=== PATIENT | female | born 1995 | race African-American/Black ===

== ENCOUNTER 2020-08-17 01:26 | Inpatient (IN) | payer MEDICAID ==
[~2020-08-17] VITALS: Ht 154.9 cm; Wt 70.3 kg
[2020-08-17] MEDS ORDERED: ONDANSETRON HCL 4MG/2ML INJ IV ONE (02:30)
[2020-08-17] MEDS: LACTATED RINGERS 1,000 ML IV SCH ×2 (02:56→10:41)
[2020-08-17 03:31] LABS: BASOPHILS % 0.2 % (0.0-2.0); CHLORIDE 106 mEq/L (98-107); HEMATOCRIT. 32.5 % (36.0-48.0); LYMPHOCYTES % 9.1 % (20.0-50.0); MEAN CORPUSCULAR HEMOGLOBIN 33.3 pg (28.0-32.0); MEAN CORPUSCULAR VOLUME 98.6 fL (81.0-99.0); MEAN PLATELET VOLUME 9.3 fl (7.4-10.4); MONOCYTES % 6.9 % (2.0-8.0); NEUTROPHILS % 83.8 % (40.0-76.0); PLATELET 199 x1000/uL (130-400); RED BLOOD CELL COUNT 3.29 mill/uL (4.2-5.4); RED CELL DISTRIBUTION WIDTH 13.6 % (11.6-14.6)
[2020-08-17 03:38] LABS: PARTIAL THROMBOPLASTIN TIME 31.8 sec (23.4-31.0); PROTHROMBIN TIME 10.3 sec (9.6-11.0)
[2020-08-17 03:42] LABS: CLARITY URINE TURBID (CLEAR); COLOR URINE ORANGE (YELLOW); KETONES URINE TRACE (NEGATIVE); LEUKOCYTE ESTERASE URINE 2+ (NEGATIVE); NITRITE URINE NEGATIVE (NEGATIVE); OCCULT BLOOD URINE 1+ (NEGATIVE); PH URINE 7.5 (4.5-8.0); PROTEIN URINE 2+ (NEGATIVE); SPECIFIC GRAVITY URINE 1.035 (1.005-1.030)
[2020-08-17] MEDS ORDERED: LIDOCAINE HCL 1% 20ML VIAL (Pyxis) INJ INFIL SCH (03:45)
[2020-08-17] MEDS ORDERED: NALOXONE HCL 0.4 MG/ML 1ML VIAL IM PRN (03:45)
[2020-08-17] MEDS ORDERED: BUTORPHANOL TARTRATE 2 MG/ML VIAL IV PRN (03:45)
[2020-08-17] MEDS ORDERED: METHYLERGONOVINE MALEATE 0.2 MG/ML IM PRN (03:45)
[2020-08-17] MEDS ORDERED: DEXT 5%/LR + PITOCIN 20UNITS/L 1,000 ML IV SCH ×2 (03:45→16:30)
[2020-08-17 03:50] LABS: *AMPHETAMINES SCREEN URINE NEGATIVE (NEGATIVE); *BARBITURATES SCREEN URINE NEGATIVE (NEGATIVE); *BENZODIAZEPINES SCREEN URINE NEGATIVE (NEGATIVE); *COCAINE SCREEN URINE NEGATIVE (NEGATIVE); METHADONE URINE SCREEN NEGATIVE (NEGATIVE); OPIATES URINE SCREEN NEGATIVE (NEGATIVE); PHENCYCLIDINE URINE SCREEN NEGATIVE (NEGATIVE)
[2020-08-17] MEDS ORDERED: ROPIVACAINE HCL/PF EPIDURAL 200 ML EPI SCH (04:00)
[2020-08-17 04:02] LABS: CANNABINOID URINE SCREEN PRESUMTIVE POSITIVE (NEGATIVE)
[2020-08-17 04:03] LABS: HEPATITIS B SURFACE ANTIGEN NEGATIVE
[2020-08-17] MEDS ORDERED: PENICILLIN G POTASSIUM 5 MMU in DEXT 5% WATER 100 ML IV SCH (04:15)
[2020-08-17] MEDS ORDERED: INFLUENZA VACCINE 05/PF 0.5 ML VIAL IM ONE (06:15)
[2020-08-17] MEDS ORDERED: PNEUMOCOCCAL 23-VAL P-SAC VAC 0.5 ML IM ONE (06:15)
[2020-08-17] MEDS ORDERED: LIDOCAINE HCL 2%/EPINEPHRINE 1:100,000 20 ML VIAL INFIL ONE (10:00)
[2020-08-17] MEDS ORDERED: PENICILLIN G POTASSIUM 2.5 MMU in DEXTROSE 5% WATER 50 ML IV SCH (10:00)
[2020-08-17] MEDS ORDERED: ACETAMINOPHEN 500MG TABLET PO NR (10:45)
[2020-08-17] MEDS ORDERED: GLYCERIN/WITCH HAZEL LEAF MEDICATED PAD TOP PRN (16:30)
[2020-08-17] MEDS ORDERED: BENZOCAINE/LANOLIN/ALOE VERA SPRAY TOP PRN (16:30)
[2020-08-17] MEDS ORDERED: HEMORRHOIDAL SUPP PR PRN (16:30)
[2020-08-17] MEDS ORDERED: IBUPROFEN 800MG TABLET PO PRN (16:30)
[2020-08-17] MEDS ORDERED: RHO(D) IMMUNE GLOBULIN 300 MCG/SYR IM PRN (16:30)
[2020-08-17] MEDS ORDERED: ACETAMINOPHEN WITH CODEINE 300/30MG TABLET PO PRN (16:30)
[2020-08-17] MEDS ORDERED: IBUPROFEN 400MG TABLET PO PRN (16:30)
[2020-08-17] MEDS ORDERED: DIPHENHYDRAMINE 25MG CAPSULE PO PRN (16:30)
[2020-08-17] MEDS ORDERED: LANOLIN OINT 7GM TUBE TOP PRN (16:30)
[2020-08-17] MEDS ORDERED: BISACODYL 10MG SUPP PR PRN (16:30)
[2020-08-17 18:30] VITALS: BP 126/76
[2020-08-17 20:00] VITALS: BP 123/69
[2020-08-17] MEDS ORDERED: DOCUSATE SODIUM 100MG CAPSULE PO SCH (21:00)
[2020-08-18 04:30] VITALS: BP 102/54
[2020-08-18] MEDS ORDERED: IBUP-2030 PO (06:53)
[2020-08-18] MEDS ORDERED: FERR325T23 PO (06:53)
[2020-08-18 07:53] VITALS: BP 119/69
[2020-08-18] MEDS: FERROUS SULFATE 325MG TABLET PO SCH ×2 (08:47→12:30)
[2020-08-18 08:57] LABS: BASOPHILS % 0.1 % (0.0-2.0); EOSINOPHILS % 0.1 % (0.0-5.0); HEMATOCRIT. 32.5 % (36.0-48.0); HEMOGLOBIN. 10.8 g/dL (12.0-16.0); LYMPHOCYTES % 7.4 % (20.0-50.0); MEAN CORPUSCULAR HEMOGLOBIN 33.2 pg (28.0-32.0); MEAN CORPUSCULAR VOLUME 99.5 fL (81.0-99.0); MEAN PLATELET VOLUME 9.6 fl (7.4-10.4); MONOCYTES % 6.9 % (2.0-8.0); NEUTROPHILS % 85.5 % (40.0-76.0); PLATELET 183 x1000/uL (130-400); RED BLOOD CELL COUNT 3.27 mill/uL (4.2-5.4); RED CELL DISTRIBUTION WIDTH 13.6 % (11.6-14.6)
[2020-08-18] MEDS ORDERED: PRENATAL VIT/FE FUMARATE/FA TABLET PO SCH (09:00)
== END 2020-08-18 19:00 | disposition home or self-care (01) | DRG 560 ==
LOC: 8 EST LDRP 01:26 → OBSVTOIN 01:26 → 8EST 18:59
PROVIDERS: ADMIT Obstetrics & Gynecology; ATTEND Obstetrics & Gynecology
PROC: 10E0XZZ Delivery of Products of Conception, External Approach (ICD-10-PCS; principal; 2020-08-17)
PROC: 0KQM0ZZ Repair Perineum Muscle, Open Approach (ICD-10-PCS; 2020-08-17)
PROC: 3E0R3BZ Introduction of Anesthetic Agent into Spinal Canal, Percutaneous Approach (ICD-10-PCS; 2020-08-17)
PROC: 00HU33Z Insertion of Infusion Device into Spinal Canal, Percutaneous Approach (ICD-10-PCS; 2020-08-17)
DX: O60.14X0 Preterm labor third trimester with preterm delivery third trimester, not applicable or unspecified (principal); O99.324 Drug use complicating childbirth; O99.52 Diseases of the respiratory system complicating childbirth; O77.0 Labor and delivery complicated by meconium in amniotic fluid; O99.02 Anemia complicating childbirth; O70.1 Second degree perineal laceration during delivery; F12.90 Cannabis use, unspecified, uncomplicated; F15.90 Other stimulant use, unspecified, uncomplicated; J45.909 Unspecified asthma, uncomplicated; D64.9 Anemia, unspecified; Z3A.35 35 weeks gestation of pregnancy; Z37.0 Single live birth
CPT/HCPCS: 36415; 76805; 76818; 80053; 80305; 80349; 81003; 82731; 85025; 86592; 86703; 86762; 86850; 86900; 87340; 99281; J2405; J2540; J2590; J2795; J3490; J7060; J7120; A4315

== ENCOUNTER 2020-12-13 11:37 | Inpatient (IN) | payer OTHER, MEDICAID ==
[~2020-12-13] VITALS: Ht 154.9 cm; Wt 59.4 kg
[~2020-12-13 11:37] MED LIST: FERR325T23 PO; IBUP-2030 PO
[2020-12-13] MEDS ORDERED: ONDANSETRON HCL 4MG/2ML INJ IV STA (12:39)
[2020-12-13] MEDS ORDERED: MAGNESIUM/ALUMINUM HYDROXIDE/SIMETHICONE 30ML UDC PO STA (12:39)
[2020-12-13] MEDS ORDERED: SODIUM CHLORIDE 0.9% 1,000 ML IV ONE ×2 (12:45→17:15)
[2020-12-13 13:05] LABS: BASOPHILS % 0.5 % (0.0-2.0); HEMATOCRIT. 45.6 % (36.0-48.0); HEMOGLOBIN. 14.9 g/dL (12.0-16.0); LYMPHOCYTES % 28.2 % (20.0-50.0); MEAN CORPUSCULAR HEMOGLOBIN 33.3 pg (28.0-32.0); MEAN CORPUSCULAR VOLUME 102.2 fL (81.0-99.0); MEAN PLATELET VOLUME 9.2 fl (7.4-10.4); NEUTROPHILS % 61.3 % (40.0-76.0); PLATELET 217 x1000/uL (130-400); RED BLOOD CELL COUNT 4.46 mill/uL (4.2-5.4); RED CELL DISTRIBUTION WIDTH 15.1 % (11.6-14.6)
[2020-12-13 13:13] LABS: CHLORIDE 104 mEq/L (98-107)
[2020-12-13 13:19] LABS: HCG SCREEN NEGATIVE
[2020-12-13 13:29] LABS: CLARITY URINE CLOUDY (CLEAR); COLOR URINE DARK YELLOW (YELLOW); KETONES URINE NEGATIVE (NEGATIVE); LEUKOCYTE ESTERASE URINE TRACE (NEGATIVE); NITRITE URINE NEGATIVE (NEGATIVE); OCCULT BLOOD URINE 2+ (NEGATIVE); PROTEIN URINE 1+ (NEGATIVE); SPECIFIC GRAVITY URINE 1.027 (1.005-1.030)
[2020-12-13] MEDS ORDERED: PIPERACILLIN/TAZ 3.375G PREMIX 50 ML IV ONE (19:00)
[2020-12-13 20:19] LABS: *BARBITURATES SCREEN URINE NEGATIVE (NEGATIVE); *BENZODIAZEPINES SCREEN URINE NEGATIVE (NEGATIVE); *COCAINE SCREEN URINE NEGATIVE (NEGATIVE); METHADONE URINE SCREEN NEGATIVE (NEGATIVE); OPIATES URINE SCREEN NEGATIVE (NEGATIVE); PHENCYCLIDINE URINE SCREEN NEGATIVE (NEGATIVE)
[2020-12-13 20:25] LABS: *AMPHETAMINES SCREEN URINE PRESUMTIVE POSITIVE (NEGATIVE); CANNABINOID URINE SCREEN PRESUMTIVE POSITIVE (NEGATIVE)
[2020-12-13] MEDS ORDERED: IOHEXOL 350 MG/ML 200ML INFUS..BTL IV ONE (23:52)
[2020-12-14] VITALS (9 sets, daily range): BP systolic 103–128; BP diastolic 52–93
[2020-12-14] MEDS ORDERED: MORPHINE SULFATE 2 MG/ML CPJ (NOT FOR IM USE) IV PRN (01:30)
[2020-12-14] MEDS: ONDANSETRON HCL 4MG/2ML INJ IV PRN ×2 (03:16→20:25)
[2020-12-14] MEDS: DEXT 5%/0.45% NACL KCL 20MEQ/L 1,000 ML IV SCH ×2 (03:31→16:09)
[2020-12-14] MEDS: PIPERACILLIN/TAZOBACTAM 3.375 G in DEXT 5% WATER 100 ML IV SCH ×2 (05:18→15:00)
[2020-12-14] MEDS ORDERED: PIPERACILLIN/TAZOBACTAM 3.375 G/VIAL IV SCH (06:00)
[2020-12-14 07:08] LABS: BASOPHILS % 0.2 % (0.0-2.0); CHLORIDE 107 mEq/L (98-107); HEMATOCRIT. 41.4 % (36.0-48.0); HEMOGLOBIN. 13.5 g/dL (12.0-16.0); LYMPHOCYTES % 25.2 % (20.0-50.0); MEAN CORPUSCULAR HEMOGLOBIN 33.5 pg (28.0-32.0); MEAN CORPUSCULAR VOLUME 102.5 fL (81.0-99.0); MEAN PLATELET VOLUME 9.8 fl (7.4-10.4); MONOCYTES % 10.1 % (2.0-8.0); NEUTROPHILS % 64.5 % (40.0-76.0); PLATELET 170 x1000/uL (130-400); RED BLOOD CELL COUNT 4.04 mill/uL (4.2-5.4); RED CELL DISTRIBUTION WIDTH 15.5 % (11.6-14.6)
[2020-12-14] MEDS ORDERED: HYDROCODONE/ACETAMINOPHEN 5/325MG TABLET PO PRN (11:15)
[2020-12-14] MEDS ORDERED: IPRATROPIUM/ALBUTEROL 0.5-3(2.5)MG/3ML NEB HHN PRN (13:45)
[2020-12-14 14:41] LABS: HEPATITIS B SURFACE ANTIGEN NEGATIVE
[2020-12-14 15:11] LABS: HEPATITIS A AB IGM NEGATIVE (NEGATIVE)
[2020-12-14] MEDS: METOPROLOL TARTRATE 50MG TABLET PO SCH (20:59)
[2020-12-15] VITALS (9 sets, daily range): BP systolic 86–160; BP diastolic 25–91
[2020-12-15] MEDS: PIPERACILLIN/TAZOBACTAM 3.375 G in DEXT 5% WATER 100 ML IV SCH ×5 (00:21→23:26)
[2020-12-15] MEDS: DEXT 5%/0.45% NACL KCL 20MEQ/L 1,000 ML IV SCH (05:14)
[2020-12-15] MEDS: METOPROLOL TARTRATE 50MG TABLET PO SCH (08:30)
[2020-12-15 09:54] LABS: CHLORIDE 107 mEq/L (98-107)
[2020-12-15] MEDS: LISINOPRIL 2.5MG TABLET PO SCH (11:30)
[2020-12-15] MEDS ORDERED: SODIUM POLYSTYRENE SULFONATE 15 G/60 ML BOT PO NR (12:00)
[2020-12-15] MEDS: FUROSEMIDE 40MG/4ML VIAL IVP SCH (12:17)
[2020-12-15] MEDS: MIDODRINE HCL 2.5MG TABLET PO SCH ×3 (12:18→17:34)
[2020-12-15 17:04] LABS: BASOPHILS % 0.2 % (0.0-2.0); HEMATOCRIT. 47.2 % (36.0-48.0); HEMOGLOBIN. 15.7 g/dL (12.0-16.0); LYMPHOCYTES % 24.7 % (20.0-50.0); MEAN CORPUSCULAR VOLUME 102.6 fL (81.0-99.0); MEAN PLATELET VOLUME 9.9 fl (7.4-10.4); MONOCYTES % 9.1 % (2.0-8.0); PLATELET 143 x1000/uL (130-400); RED CELL DISTRIBUTION WIDTH 15.4 % (11.6-14.6)
[2020-12-15] MEDS ORDERED: CARVEDILOL 12.5MG TABLET PO SCH (21:00)
[2020-12-16] VITALS: BP 99/60
[2020-12-16 02:00] VITALS: BP 105/78
[2020-12-16 04:00] VITALS: BP 118/43
[2020-12-16] MEDS: PIPERACILLIN/TAZOBACTAM 3.375 G in DEXT 5% WATER 100 ML IV SCH ×2 (05:49→11:01)
[2020-12-16 06:00] VITALS: BP 105/76
[2020-12-16 07:30] VITALS: BP 108/76
[2020-12-16] MEDS: FUROSEMIDE 40MG/4ML VIAL IVP SCH (08:23)
[2020-12-16] MEDS: LISINOPRIL 2.5MG TABLET PO SCH (08:24)
[2020-12-16] MEDS: MIDODRINE HCL 2.5MG TABLET PO SCH ×2 (08:24→13:00)
[2020-12-16 10:28] LABS: BASOPHILS % 0.2 % (0.0-2.0); EOSINOPHILS % 0.1 % (0.0-5.0); HEMATOCRIT. 42.8 % (36.0-48.0); HEMOGLOBIN. 14.3 g/dL (12.0-16.0); LYMPHOCYTES % 18.7 % (20.0-50.0); MEAN CORPUSCULAR HEMOGLOBIN 33.9 pg (28.0-32.0); MEAN CORPUSCULAR VOLUME 101.9 fL (81.0-99.0); MEAN PLATELET VOLUME 9.7 fl (7.4-10.4); MONOCYTES % 8.4 % (2.0-8.0); NEUTROPHILS % 72.6 % (40.0-76.0); PLATELET 145 x1000/uL (130-400); RED CELL DISTRIBUTION WIDTH 15.5 % (11.6-14.6)
[2020-12-16 10:54] LABS: CHLORIDE 102 mEq/L (98-107)
[2020-12-16 12:00] VITALS: BP 121/91
[2020-12-16] MEDS ORDERED: FURO-151 MT (12:03)
[2020-12-16] MEDS ORDERED: POTA20TA82 MT (12:03)
[2020-12-16] MEDS ORDERED: LISI2.5T47 PO (12:03)
[2020-12-16] MEDS ORDERED: CARV6.2548 MT (12:03)
[2020-12-16] MEDS ORDERED: ATORVASTATIN CALCIUM 10MG TABLET PO SCH (21:00)
[2020-12-22 04:11] LABS: AMPHETAMINE CONF URINE Positive (.); CANNABINOID CONFIRMATION URINE Positive (.)
== END 2020-12-16 15:00 | disposition left against medical advice (07) | DRG 720 ==
LOC: ER 11:37 → 5EST 21:28 → ENRESERV 21:43
PROVIDERS: ADMIT Internal Medicine; ATTEND Internal Medicine
DX: A41.9 Sepsis, unspecified organism (principal); E44.1 Mild protein-calorie malnutrition; E87.1 Hypo-osmolality and hyponatremia; I42.0 Dilated cardiomyopathy; I50.23 Acute on chronic systolic (congestive) heart failure; J40 Bronchitis, not specified as acute or chronic; K81.0 Acute cholecystitis; R74.01 Elevation of levels of liver transaminase levels; F17.210 Nicotine dependence, cigarettes, uncomplicated; E87.2 Acidosis; F15.10 Other stimulant abuse, uncomplicated; F12.10 Cannabis abuse, uncomplicated; I34.0 Nonrheumatic mitral (valve) insufficiency; I36.1 Nonrheumatic tricuspid (valve) insufficiency; I11.0 Hypertensive heart disease with heart failure; E78.5 Hyperlipidemia, unspecified; I24.8 Other forms of acute ischemic heart disease; Z68.24 Body mass index [BMI] 24.0-24.9, adult; Z71.51 Drug abuse counseling and surveillance of drug abuser; Z91.19 Patient's noncompliance with other medical treatment and regimen; Z82.49 Family history of ischemic heart disease and other diseases of the circulatory system
CPT/HCPCS: 36415; 71045; 71275; 76705; 78227; 80048; 80053; 80061; 80305; 80349; 81003; 83605; 83735; 83880; 84443; 84484; 84703; 85025; 85379; 86705; 86709; 86803; 87340; 93005; 93306; 93970; 94640; 99285; A9537; J1940; J2270; J2405; J2543; J7030; J7060; Q9967

== ENCOUNTER 2022-12-02 01:36 | Inpatient (IN) | payer MEDICAID, OTHER ==
[~2022-12-02] VITALS: Ht 157.5 cm; Wt 53.1 kg
[~2022-12-02 01:36] MED LIST changes: +CARV6.2548 MT; +FURO-151 MT; +LISI2.5T47 PO; +POTA-205 MT
[2022-12-02] MEDS ORDERED: HYDROCODONE/ACETAMINOPHEN 5/325MG TABLET PO STA (02:38)
[2022-12-02 03:30] LABS: BASOPHILS % 0.6 % (0.0-2.0); EOSINOPHILS % 0.5 % (0.0-5.0); HEMATOCRIT. 36.4 % (36.0-48.0); LYMPHOCYTES % 22.6 % (20.0-50.0); MEAN CORPUSCULAR VOLUME 97.3 fL (81.0-99.0); MEAN PLATELET VOLUME 7.9 fl (7.4-10.4); MONOCYTES % 9.3 % (2.0-8.0); PLATELET 246 x1000/uL (130-400); RED BLOOD CELL COUNT 3.74 mill/uL (4.2-5.4); RED CELL DISTRIBUTION WIDTH 16.1 % (11.6-14.6)
[2022-12-02 03:36] LABS: CHLORIDE 101 mEq/L (98-107)
[2022-12-02] MEDS ORDERED: SODIUM CHLORIDE 0.9% 1,000 ML IV ONE ×2 (05:30→05:45)
[2022-12-02] MEDS ORDERED: PIPERACILLIN/TAZ 3.375G PREMIX 50 ML IV NR (05:30)
[2022-12-02] MEDS ORDERED: VANCOMYCIN 1G PREMIX 200 ML IV NR (05:30)
[2022-12-02] MEDS ORDERED: IOHEXOL-300 100 ML BOTTLE ONE (07:09)
[2022-12-02] MEDS ORDERED: ACETAMINOPHEN 325MG TABLET PO ONE (13:00)
[2022-12-02] MEDS ORDERED: HYDROCODONE/ACETAMINOPHEN 5/325MG TABLET PO PRN (15:00)
[2022-12-02] MEDS ORDERED: CEFTRIAXONE 1 G PREMIX 50 ML IV SCH (15:00)
[2022-12-02] MEDS ORDERED: NALOXONE HCL 0.4MG/ML VIAL IV PRN ×2 (15:00→23:00)
[2022-12-02] MEDS ORDERED: ACETAMINOPHEN 325MG TABLET PO NR (15:00)
[2022-12-02] MEDS ORDERED: FUROSEMIDE 40MG/4ML VIAL IVP SCH (15:00)
[2022-12-02] MEDS ORDERED: KETOROLAC 30MG/ML VIAL IV PRN (15:00)
[2022-12-02] MEDS ORDERED: CEFTRIAXONE 1,000 MG in DEXTROSE 5% WATER 50 ML IV SCH ×2 (15:00→18:00)
[2022-12-02 16:00] VITALS: BP 111/79
[2022-12-02 16:20] VITALS: BP 111/79
[2022-12-02] MEDS ORDERED: CARV3.1242 PO (17:02)
[2022-12-02] MEDS ORDERED: LISI2.5T47 PO (17:02)
[2022-12-02] MEDS ORDERED: SPIR10PO PO (17:03)
[2022-12-02] MEDS ORDERED: FURO-152 PO (17:05)
[2022-12-02] MEDS ORDERED: DIGO250T79 PO (17:05)
[2022-12-02] MEDS ORDERED: ASPI-1497 PO (17:05)
[2022-12-02] MEDS ORDERED: HYDR-4350 PO (17:05)
[2022-12-02 18:46] LABS: *AMPHETAMINES SCREEN URINE NEGATIVE (NEGATIVE); *BARBITURATES SCREEN URINE NEGATIVE (NEGATIVE); *BENZODIAZEPINES SCREEN URINE NEGATIVE (NEGATIVE); *COCAINE SCREEN URINE NEGATIVE (NEGATIVE); METHADONE URINE SCREEN NEGATIVE (NEGATIVE); PHENCYCLIDINE URINE SCREEN NEGATIVE (NEGATIVE)
[2022-12-02 18:54] LABS: CANNABINOID URINE SCREEN PRESUMTIVE POSITIVE (NEGATIVE); OPIATES URINE SCREEN PRESUMTIVE POSITIVE (NEGATIVE)
[2022-12-02 20:00] VITALS: BP 105/69
[2022-12-02] MEDS ORDERED: VANCOMYCIN 1G PREMIX 200 ML IV SCH (21:00)
[2022-12-02] MEDS ORDERED: MORPHINE SULFATE 2 MG/ML CPJ (NOT FOR IM USE) IV NR (22:45)
[2022-12-02] MEDS ORDERED: HYDROCODONE/ACETAMINOPHEN 10/325MG TABLET PO PRN (22:45)
[2022-12-02 23:42] VITALS: BP 110/75
[2022-12-03 04:00] VITALS: BP 113/72
[2022-12-03 04:23] VITALS: BP 110/75
[2022-12-03 06:01] LABS: CHLORIDE 103 mEq/L (98-107)
[2022-12-03 06:04] LABS: BASOPHILS % 0.4 % (0.0-2.0); EOSINOPHILS % 0.8 % (0.0-5.0); HEMATOCRIT. 32.3 % (36.0-48.0); HEMOGLOBIN. 10.6 g/dL (12.0-16.0); LYMPHOCYTES % 17.4 % (20.0-50.0); MEAN CORPUSCULAR VOLUME 97.5 fL (81.0-99.0); MEAN PLATELET VOLUME 8.6 fl (7.4-10.4); MONOCYTES % 8.8 % (2.0-8.0); NEUTROPHILS % 72.6 % (40.0-76.0); PLATELET 221 x1000/uL (130-400); RED BLOOD CELL COUNT 3.32 mill/uL (4.2-5.4); RED CELL DISTRIBUTION WIDTH 16.4 % (11.6-14.6)
== END 2022-12-03 06:55 | disposition left against medical advice (07) | DRG 206 ==
LOC: ER 01:36 → EDBEDREQ 13:05 → EDBEDREQTM 13:05 → 7EST 15:58
PROVIDERS: ADMIT Internal Medicine; ATTEND Internal Medicine
DX: T82.7XXA Infection and inflammatory reaction due to other cardiac and vascular devices, implants and grafts, initial encounter (principal); I50.23 Acute on chronic systolic (congestive) heart failure; I11.0 Hypertensive heart disease with heart failure; F15.90 Other stimulant use, unspecified, uncomplicated; J45.909 Unspecified asthma, uncomplicated; Z20.822 Contact with and (suspected) exposure to COVID-19; Z53.29 Procedure and treatment not carried out because of patient's decision for other reasons; Z95.810 Presence of automatic (implantable) cardiac defibrillator; Z79.899 Other long term (current) drug therapy; R07.9 Chest pain, unspecified
CPT/HCPCS: 36415; 71045; 71275; 80048; 80053; 80305; 83605; 83880; 84484; 85025; 85379; 87426; 93970; 99291; C9803; J0696; J1885; J1940; J2270; J2543; J3370; J7030; J7060; Q9967